=== PATIENT | female | born 1995 | race Hispanic/Latino ===

== ENCOUNTER 2018-10-07 05:43 | Emergency (ER) | payer MEDICAID ==
[2018-10-07 06:17] LABS: APPEARANCE,URINE CLOUDY (CLEAR); BILIRUBIN,URINE NEGATIVE (NEGATIVE); COLOR,URINE RED (YELLOW); GLUCOSE, URINE (UA) 100 mg/dL (NEGATIVE); KETONES,URINE 15 mg/dL (NEGATIVE); LEUKOCYTE ESTERASE ,URINE MODERATE (NEGATIVE); NITRATE,URINE POSITIVE (NEGATIVE); OCCULT BLOOD,URINE LARGE (NEGATIVE); PROTEIN,URINE >=300 mg/dL (NEGATIVE)
[2018-10-07 06:33] LABS: AMPHET/METH SCREEN,URINE NEGATIVE (NEGATIVE); BARBITURATE SCREEN, URINE NEGATIVE (NEGATIVE); BENZODIAZEPINES SCREEN,URINE POSITIVE (NEGATIVE); CANNABINOID SCREEN,URINE NEGATIVE (NEGATIVE); COCAINE SCREEN,URINE POSITIVE (NEGATIVE); OPIATE SCREEN,URINE NEGATIVE (NEGATIVE); PHENCYCLIDINE SCREEN,URINE NEGATIVE (NEGATIVE)
[2018-10-07 06:35] LABS: BASOPHILS % (AUTO) 0.3 % (0.0-5.0); EOSINOPHILS % (AUTO) 2.4 % (0.0-8.0); HEMATOCRIT 34.4 % (36-48); MEAN CORPUSCULAR HGB CONC 35.5 g/dL (32.0-36.0); MEAN CORPUSCULAR VOLUME 92.9 fL (79-99); MONOCYTES % (AUTO) 5.6 % (3.0-13.0); NEUTROPHILS % (AUTO) 56.7 % (40.0-77.0); PLATELET COUNT (AUTO) 211 K/uL (130-400); RED CELL DISTRIBUTION WIDTH 13.1 % (11.0-15.5); WHITE BLOOD COUNT (AUTO) 8.2 K/uL (4.8-10.8)
[2018-10-07 06:40] LABS: RBC,URINE TNTC /HPF (0-1)
[2018-10-07 06:41] LABS: BACTERIA,URINE Few /HPF (None Seen); SQUAMOUS EPITHELIAL CELL,UR 0-2 /HPF (0-2); WBC,URINE 0-1 /HPF (0-1)
[2018-10-07 06:42] LABS: CREATININE 0.6 mg/dL (0.5-1.5); POTASSIUM 3.2 mmol/L (3.5-5.1)
[2018-10-07 07:06] LABS: ALBUMIN 3.9 g/dL (3.5-5.0); BILIRUBIN,DIRECT 0.1 mg/dL (0.0-0.3); BILIRUBIN,TOTAL 0.3 mg/dL (0.2-1.0); TOTAL PROTEIN, SERUM 7.6 g/dL (6.0-8.3)
== END 2018-10-07 07:22 | disposition home or self-care (01) ==
LOC: EDH 05:43
DX: O03.4 Incomplete spontaneous abortion without complication (principal); F14.10 Cocaine abuse, uncomplicated; Z3A.13 13 weeks gestation of pregnancy
CPT/HCPCS: 36415; 76801; 80048; 80076; 80305; 81001; 84702; 85025; 86900; 86901

== ENCOUNTER 2021-06-07 07:48 | Emergency (ER) | payer MEDICAID ==
[~2021-06-07] VITALS: Ht 157.5 cm; Wt 56.2 kg
[2021-06-07 07:54] VITALS: BP 117/70
[2021-06-07] MEDS ORDERED: LIDOCAINE HCL 400MG/20ML VIAL ONE (08:00)
[2021-06-07] MEDS ORDERED: LIDOCAINE HCL 1% 20 ML VIAL INJ SCH (08:00)
== END 2021-06-07 08:36 | disposition home or self-care (01) ==
LOC: EDH 07:48
DX: S60.443A External constriction of left middle finger, initial encounter (principal); W49.04XA Ring or other jewelry causing external constriction, initial encounter; Y93.89 Activity, other specified; Y92.89 Other specified places as the place of occurrence of the external cause; Y99.8 Other external cause status
CPT/HCPCS: 64450; 99284; J3490

== ENCOUNTER 2021-11-28 19:25 | Emergency (ER) | payer MEDICAID ==
[~2021-11-28] VITALS: Ht 157.5 cm; Wt 54.9 kg
[2021-11-28 19:26] VITALS: BP 113/66
[2021-11-28 20:15] LABS: APPEARANCE,URINE Clear (CLEAR); BILIRUBIN,URINE Negative (NEGATIVE); COLOR,URINE Yellow (YELLOW); GLUCOSE, URINE (UA) Negative (NEGATIVE); KETONES,URINE Trace mg/dL (NEGATIVE); LEUKOCYTE ESTERASE ,URINE Trace (NEGATIVE); NITRATE,URINE Negative (NEGATIVE); OCCULT BLOOD,URINE Large (NEGATIVE); PROTEIN,URINE Trace mg/dL (NEGATIVE)
[2021-11-28 20:18] LABS: HCG,QUAL RESULT NEGATIVE (NEGATIVE)
[2021-11-28 20:24] LABS: BACTERIA,URINE Rare /HPF (None Seen); SQUAMOUS EPITHELIAL CELL,UR Few /HPF (0-2)
[2021-11-28] MEDS ORDERED: PHEN-847 PO (20:37)
[2021-11-28] MEDS ORDERED: CEPH500B PO (20:37)
== END 2021-11-28 20:55 | disposition home or self-care (01) ==
LOC: EDH 19:25
DX: N39.0 Urinary tract infection, site not specified (principal); Z87.59 Personal history of other complications of pregnancy, childbirth and the puerperium
CPT/HCPCS: 81001; 81025

== ENCOUNTER 2022-01-25 20:34 | Emergency (ER) | payer MEDICAID ==
[~2022-01-25] VITALS: Ht 154.9 cm; Wt 55.3 kg
[~2022-01-25 20:34] MED LIST: CEPH500B PO; PHEN-847 PO
[2022-01-25] MEDS ORDERED: ACETAMINOPHEN 500 MG TABLET PO ONE (21:00)
[2022-01-25 21:05] LABS: BASOPHILS % (AUTO) 0.3 % (0.0-5.0); LYMPHOCYTES % (AUTO) 5.5 % (21.0-51.0); MEAN CORPUSCULAR VOLUME 91.1 fL (79-99); MONOCYTES % (AUTO) 4.5 % (3.0-13.0); NEUTROPHILS % (AUTO) 88.9 % (40.0-77.0); PLATELET COUNT (AUTO) 181 K/uL (130-400); RED BLOOD CELL COUNT(AUTO) 3.84 MIL/uL (4.00-5.50); RED CELL DISTRIBUTION WIDTH 12.3 % (11.0-15.5)
[2022-01-25 21:06] LABS: APPEARANCE,URINE CLEAR (CLEAR); BILIRUBIN,URINE NEGATIVE (NEGATIVE); COLOR,URINE YELLOW (YELLOW); GLUCOSE, URINE (UA) NEGATIVE (NEGATIVE); KETONES,URINE NEGATIVE (NEGATIVE); LEUKOCYTE ESTERASE ,URINE TRACE (NEGATIVE); NITRATE,URINE POSITIVE (NEGATIVE); OCCULT BLOOD,URINE SMALL (NEGATIVE); PROTEIN,URINE 30 mg/dL (NEGATIVE)
[2022-01-25 21:10] LABS: HCG,QUALITATIVE URINE NEGATIVE (NEGATIVE)
[2022-01-25 21:12] LABS: BACTERIA,URINE Few /HPF (None Seen); SQUAMOUS EPITHELIAL CELL,UR Few /HPF (0-2)
[2022-01-25 21:14] LABS: CREATININE 0.8 mg/dL (0.5-1.5); POTASSIUM 3.3 mmol/L (3.5-5.1)
[2022-01-25 21:19] LABS: ALBUMIN 3.8 g/dL (3.5-5.0); TOTAL PROTEIN, SERUM 8.6 g/dL (6.0-8.3)
[2022-01-25] MEDS ORDERED: 0.9%NACL 1000ML 1,000 ML IV SCH (21:30)
[2022-01-25] MEDS ORDERED: CEFTRIAXONE 1G VIAL IVP ONE (21:30)
[2022-01-25] MEDS ORDERED: KETOROLAC 30MG VIAL (30MG/ML) IVP ONE (22:30)
[2022-01-25] MEDS ORDERED: IBUP-2070 PO (23:54)
[2022-01-25] MEDS ORDERED: CEFD300C3 PO (23:54)
[2022-01-25] MEDS ORDERED: ACET-66 PO (23:54)
[2022-01-26] VITALS: BP 99/61
== END 2022-01-26 00:06 | disposition home or self-care (01) ==
LOC: EDH 20:34
DX: N39.0 Urinary tract infection, site not specified (principal); Z20.822 Contact with and (suspected) exposure to COVID-19; Z79.1 Long term (current) use of non-steroidal anti-inflammatories (NSAID)
CPT/HCPCS: 99284; 96374; 87635; 80053; 85025; 87040 ×2; 87077 ×2; 87088; 87186 ×2; 87804 ×2; 83605; 81001; 81025; 36415; 93005; 84145; C9803; J0696

== ENCOUNTER 2022-05-24 20:47 | Emergency (ER) | payer MEDICAID ==
[~2022-05-24] VITALS: Ht 157.5 cm; Wt 53.1 kg
[~2022-05-24 20:47] MED LIST changes: +ACET-66 PO; +CEFD300C3 PO; +IBUP-2070 PO
[2022-05-24 21:42] LABS: APPEARANCE,URINE CLEAR (CLEAR); BILIRUBIN,URINE NEGATIVE (NEGATIVE); COLOR,URINE YELLOW (YELLOW); GLUCOSE, URINE (UA) NEGATIVE (NEGATIVE); KETONES,URINE NEGATIVE (NEGATIVE); LEUKOCYTE ESTERASE ,URINE 250 Leu/uL (NEGATIVE); NITRATE,URINE NEGATIVE (NEGATIVE); OCCULT BLOOD,URINE NEGATIVE (NEGATIVE); PROTEIN,URINE 10 mg/dL (NEGATIVE)
[2022-05-24 21:44] LABS: HCG,QUALITATIVE URINE NEGATIVE (NEGATIVE)
[2022-05-24 21:54] LABS: BACTERIA,URINE FEW /HPF (None Seen); MUCUS,URINE FEW LPF (None Seen); SQUAMOUS EPITHELIAL CELL,UR FEW /HPF (0-2); WBC,URINE 26-50 /HPF (0-1)
[2022-05-24] MEDS ORDERED: CEFTRIAXONE 1G VIAL IM ONE (22:30)
[2022-05-24] MEDS ORDERED: CEPH500B PO (22:36)
[2022-05-24 23:14] VITALS: BP 104/70
== END 2022-05-24 23:18 | disposition home or self-care (01) ==
LOC: EDH 20:47
DX: N39.0 Urinary tract infection, site not specified (principal); Z79.1 Long term (current) use of non-steroidal anti-inflammatories (NSAID); Z87.59 Personal history of other complications of pregnancy, childbirth and the puerperium
CPT/HCPCS: 99284; 76856; 87088; 81001; 81025; 96372; J0696

== ENCOUNTER 2022-08-13 22:16 | Observation (INO) | payer MEDICAID ==
[~2022-08-13] VITALS: Ht 157.5 cm; Wt 54.0 kg
[2022-08-13 22:54] LABS: BASOPHILS % (AUTO) 0.2 % (0.0-5.0); EOSINOPHILS % (AUTO) 0.7 % (0.0-8.0); HEMATOCRIT 24.6 % (36-48); LYMPHOCYTES % (AUTO) 23.7 % (21.0-51.0); MEAN CORPUSCULAR HEMOGLOBIN 30.9 pg (27.0-33.0); MEAN CORPUSCULAR HGB CONC 34.1 g/dL (32.0-36.0); MEAN CORPUSCULAR VOLUME 90.4 fL (79-99); MONOCYTES % (AUTO) 8.8 % (3.0-13.0); NEUTROPHILS % (AUTO) 65.9 % (40.0-77.0); PLATELET COUNT (AUTO) 245 K/uL (130-400); RED BLOOD CELL COUNT(AUTO) 2.72 MIL/uL (4.00-5.50); RED CELL DISTRIBUTION WIDTH 12.4 % (11.0-15.5); WHITE BLOOD COUNT (AUTO) 8.1 K/uL (4.8-10.8)
[2022-08-13] MEDS ORDERED: 0.9%NACL 1000ML 1,000 ML IV ONE (23:00)
[2022-08-13 23:04] LABS: APPEARANCE,URINE CLOUDY (CLEAR); BILIRUBIN,URINE NEGATIVE (NEGATIVE); COLOR,URINE LIGHT-YELLOW (YELLOW); GLUCOSE, URINE (UA) NEGATIVE (NEGATIVE); KETONES,URINE NEGATIVE (NEGATIVE); LEUKOCYTE ESTERASE ,URINE 500 Leu/uL (NEGATIVE); NITRATE,URINE NEGATIVE (NEGATIVE); OCCULT BLOOD,URINE LARGE (NEGATIVE); PH,URINE 7.5 (5.0-8.0); PROTEIN,URINE 20 mg/dL (NEGATIVE); UROBILINOGEN,URINE 3 mg/dL (0.2-1.0)
[2022-08-13 23:09] LABS: BACTERIA,URINE RARE /HPF (None Seen); MUCUS,URINE RARE LPF (None Seen); RBC,URINE 26-50 /HPF (0-1); SQUAMOUS EPITHELIAL CELL,UR MOD /HPF (0-2); WBC,URINE 51-100 /HPF (0-1)
[2022-08-13 23:23] LABS: ALBUMIN 2.9 g/dL (3.5-5.0); CREATININE 0.7 mg/dL (0.5-1.5); TOTAL PROTEIN, SERUM 7.8 g/dL (6.0-8.3)
[2022-08-13 23:26] LABS: POTASSIUM 2.8 mmol/L (3.5-5.1)
[2022-08-13] MEDS ORDERED: CEFTRIAXONE 1G VIAL IVP ONE (23:30)
[2022-08-14] VITALS (13 sets, daily range): BP systolic 101–117; BP diastolic 58–88
[2022-08-14] MEDS ORDERED: POTASSIUM BICARB/CIT AC 25 MEQ TABLET.EFF ONE (00:15)
[2022-08-14] MEDS: POTASSIUM BICARB/CIT AC 25 MEQ TABLET.EFF PO SCH ×2 (00:17→14:00)
[2022-08-14] MEDS ORDERED: PROMETHAZINE HCL 25 MG/ML 1ML AMPULE IM PRN (02:30)
[2022-08-14] MEDS ORDERED: ACETAMINOPHEN 500 MG TABLET PO ONE (02:30)
[2022-08-14] MEDS ORDERED: MISOPROSTOL 100 MCG TABLET PO ONE (02:30)
[2022-08-14] MEDS ORDERED: MEPERIDINE-PF 50 MG/ML SYG IVP PRN (02:30)
[2022-08-14] MEDS ORDERED: 0.9%NACL 1000ML 1,000 ML IV ONE (04:00)
[2022-08-14] MEDS ORDERED: ROCURONIUM 10MG/1ML SYR 10 MG/ML ML ONE (08:53)
[2022-08-14] MEDS ORDERED: LIDOCAINE PF 100MG/5ML (2%) SYRINGE 5ML ONE (08:53)
[2022-08-14] MEDS ORDERED: DEXAMETHASONE SOD PHOSPHATE 10MG/ML 1ML VIAL ONE (08:54)
[2022-08-14] MEDS ORDERED: PROPOFOL 10 MG/ML 20ML VIAL IV ONE (08:54)
[2022-08-14] MEDS ORDERED: FENTANYL CITRATE PF 50 MCG/1 ML 2ML VIAL ONE (08:54)
[2022-08-14] MEDS ORDERED: MIDAZOLAM HCL 1 MG/ML 2ML VIAL ONE (08:54)
[2022-08-14] MEDS ORDERED: ONDANSETRON 4MG INJ ONE (08:54)
[2022-08-14] MEDS ORDERED: CEFAZOLIN SODIUM 2 GM VIAL ONE (09:22)
[2022-08-14] MEDS ORDERED: CEFAZOLIN SODIUM 2 GM VIAL IVPB ONE (09:24)
[2022-08-14] MEDS ORDERED: NEOSTIGMINE 5MG/5ML SYR IV ONE (09:27)
[2022-08-14] MEDS ORDERED: GLYCOPYRROLATE 1 MG/5 ML SYRINGE ONE (09:27)
[2022-08-14] MEDS ORDERED: METHYLERGONOVINE MALEATE 0.2 MG/1 ML ML ONE (09:28)
[2022-08-14] MEDS ORDERED: METHYLERGONOVINE MALEATE 0.2 MG/1 ML ML IM ONE (09:29)
[2022-08-14] MEDS ORDERED: OSELTAMIVIR PHOSPHATE 75 MG CAP PO SCH ×2 (11:00→21:00)
== END 2022-08-14 16:25 | disposition home or self-care (01) ==
LOC: EDH 22:16 → INTOOBSV 22:17 → EDHIP 22:17 → WSH 08-14 02:40
PROVIDERS: ADMIT Obstetrics & Gynecology; ATTEND Obstetrics & Gynecology
DX: O03.4 Incomplete spontaneous abortion without complication (principal); Z20.822 Contact with and (suspected) exposure to COVID-19; D64.9 Anemia, unspecified; N39.0 Urinary tract infection, site not specified; J10.1 Influenza due to other identified influenza virus with other respiratory manifestations; Z3A.10 10 weeks gestation of pregnancy; Z79.899 Other long term (current) drug therapy
CPT/HCPCS: 99284; 80053; 84702; 85025; 86850; 86900; 86901; 86923; 87040 ×2; 87077; 87088; 87186; 87804 ×2; 83605; 81001; 81025; 36415; 87635; 76817; 59820; 96374; 96375; 36430; 88305; C9803; J7030 ×5; G0378 ×6; A4351; C1769; P9016 ×2; J3010; J3490 ×3; J1100; J2710; J0696; J2250; J2405; J2175; J2210 ×2; J0690 ×2; 76801; J2001; J2704

== ENCOUNTER 2022-10-10 15:01 | Emergency (ER) | payer MEDICAID ==
[~2022-10-10] VITALS: Ht 157.5 cm; Wt 54.9 kg
[2022-10-10 16:22] LABS: BASOPHILS % (AUTO) 0.4 % (0.0-5.0); EOSINOPHILS % (AUTO) 0.6 % (0.0-8.0); HEMATOCRIT 37.1 % (36-48); LYMPHOCYTES % (AUTO) 26.7 % (21.0-51.0); MEAN CORPUSCULAR HEMOGLOBIN 30.4 pg (27.0-33.0); MEAN CORPUSCULAR HGB CONC 33.7 g/dL (32.0-36.0); MEAN CORPUSCULAR VOLUME 90.3 fL (79-99); MONOCYTES % (AUTO) 5.7 % (3.0-13.0); NEUTROPHILS % (AUTO) 66.3 % (40.0-77.0); PLATELET COUNT (AUTO) 223 K/uL (130-400); RED BLOOD CELL COUNT(AUTO) 4.11 MIL/uL (4.00-5.50); RED CELL DISTRIBUTION WIDTH 13.5 % (11.0-15.5); WHITE BLOOD COUNT (AUTO) 7.2 K/uL (4.8-10.8)
[2022-10-10 16:30] LABS: CREATININE 0.8 mg/dL (0.5-1.5); POTASSIUM 3.7 mmol/L (3.5-5.1)
[2022-10-10 16:35] LABS: ALBUMIN 4.2 g/dL (3.5-5.0); TOTAL PROTEIN, SERUM 8.7 g/dL (6.0-8.3)
[2022-10-10 17:01] LABS: APPEARANCE,URINE CLEAR (CLEAR); BILIRUBIN,URINE NEGATIVE (NEGATIVE); COLOR,URINE LIGHT-YELLOW (YELLOW); GLUCOSE, URINE (UA) NEGATIVE (NEGATIVE); KETONES,URINE NEGATIVE (NEGATIVE); LEUKOCYTE ESTERASE ,URINE NEGATIVE Leu/uL (NEGATIVE); NITRATE,URINE NEGATIVE (NEGATIVE); OCCULT BLOOD,URINE NEGATIVE (NEGATIVE); PH,URINE 5.5 (5.0-8.0); PROTEIN,URINE NEGATIVE (NEGATIVE); UROBILINOGEN,URINE 0.2 mg/dL (0.2-1.0)
[2022-10-10 17:03] LABS: BACTERIA,URINE RARE /HPF (None Seen); MUCUS,URINE RARE LPF (None Seen); SQUAMOUS EPITHELIAL CELL,UR FEW /HPF (0-2); YEAST,URINE BUDDING FEW /HPF (None Seen)
[2022-10-10 17:35] LABS: HCG,QUALITATIVE URINE NEGATIVE (NEGATIVE)
[2022-10-10] MEDS ORDERED: ONDA4TAB10 PO (18:41)
[2022-10-10 18:49] VITALS: BP 122/63
== END 2022-10-10 19:06 | disposition home or self-care (01) ==
LOC: EDH 15:01
DX: R11.2 Nausea with vomiting, unspecified (principal)
CPT/HCPCS: 36415; 80053; 81001; 81025; 83690; 85025

== ENCOUNTER 2023-05-17 16:55 | Emergency (ER) | payer MEDICAID ==
[~2023-05-17] VITALS: Ht 157.5 cm; Wt 54.4 kg
[~2023-05-17 16:55] MED LIST changes: -ACET-66 PO; -CEFD300C3 PO; -CEPH500B PO; -IBUP-2070 PO; +ONDA4TAB10 PO; -PHEN-847 PO
[2023-05-17 18:16] LABS: RAPID GROUP A STREP negative (NEGATIVE)
[2023-05-17 18:18] LABS: SARS-CoV-2, RNA, NAAT NEGATIVE SARS CoV-2 (NEGATIVE)
[2023-05-17 18:26] LABS: INFLUENZA TYPE A Negative For Type A (NEGATIVE); INFLUENZA TYPE B Negative For Type B (NEGATIVE)
[2023-05-17] MEDS ORDERED: DEXAMETHASONE 4 MG TAB PO SCH (21:00)
[2023-05-17] MEDS ORDERED: CEFTRIAXONE 1G VIAL IVPB ONE (21:00)
[2023-05-17 21:19] LABS: BASOPHILS # (AUTO) 0.01 K/uL (0.00-0.20); BASOPHILS % (AUTO) 0.1 % (0.0-5.0); EOSINOPHILS # (AUTO) 0.05 K/uL (0.00-0.70); EOSINOPHILS % (AUTO) 0.5 % (0.0-8.0); HEMATOCRIT 39.5 % (36-48); IMMATURE GRANULOCYTE ABSOLUTE 0.04 K/uL (0-1); LYMPHOCYTES # (AUTO) 0.6 K/uL (1.0-4.8); LYMPHOCYTES % (AUTO) 5.6 % (21.0-51.0); MEAN CORPUSCULAR HEMOGLOBIN 31.8 pg (27.0-33.0); MEAN CORPUSCULAR HGB CONC 33.9 g/dL (32.0-36.0); MEAN CORPUSCULAR VOLUME 93.6 fL (79-99); MONOCYTES # (AUTO) 0.4 K/uL (0.1-1.0); MONOCYTES % (AUTO) 3.8 % (3.0-13.0); NEUTROPHILS # (AUTO) 8.8 K/uL (1.8-7.7); NEUTROPHILS % (AUTO) 89.6 % (40.0-77.0); PLATELET COUNT (AUTO) 182 K/uL (130-400); RED BLOOD CELL COUNT(AUTO) 4.22 MIL/uL (4.00-5.50); RED CELL DISTRIBUTION WIDTH 12.9 % (11.0-15.5); WHITE BLOOD COUNT (AUTO) 9.8 K/uL (4.8-10.8)
[2023-05-17 21:36] LABS: CREATININE 0.7 mg/dL (0.5-1.5); POTASSIUM 3.2 mmol/L (3.5-5.1)
[2023-05-17 21:41] LABS: ALBUMIN 3.9 g/dL (3.5-5.0); BILIRUBIN,TOTAL 0.4 mg/dL (0.2-1.0); TOTAL PROTEIN, SERUM 9.1 g/dL (6.0-8.3)
[2023-05-17] MEDS ORDERED: AMOX250L PO (21:48)
[2023-05-17] MEDS ORDERED: ACET160E39 PO (21:48)
[2023-05-17 22:11] VITALS: BP 128/78; PULSE 88; RESP 20; O2SAT 100
== END 2023-05-17 22:16 | disposition home or self-care (01) ==
LOC: EDH 16:55
DX: J03.00 Acute streptococcal tonsillitis, unspecified (principal); J03.90 Acute tonsillitis, unspecified; E86.0 Dehydration; Z20.822 Contact with and (suspected) exposure to COVID-19
CPT/HCPCS: 99284; 96365; 87635; 80053; 85025; 87880; 87804 ×2; 36415; C9803; J0696; J8540

== ENCOUNTER 2024-01-14 19:59 | Emergency (ER) | payer BC ==
[~2024-01-14] VITALS: Ht 157.5 cm; Wt 54.4 kg
[~2024-01-14 19:59] MED LIST changes: +ACET160E39 PO; +AMOX250L PO; +ONDA-243 PO; -ONDA4TAB10 PO; +TRAZ-253 PO
[2024-01-14 20:41] LABS: APPEARANCE,URINE CLEAR (CLEAR); BILIRUBIN,URINE NEGATIVE (NEGATIVE); COLOR,URINE COLORLESS (YELLOW); GLUCOSE, URINE (UA) NEGATIVE (NEGATIVE); KETONES,URINE NEGATIVE (NEGATIVE); NITRATE,URINE NEGATIVE (NEGATIVE); OCCULT BLOOD,URINE NEGATIVE (NEGATIVE); PH,URINE 6.5 (5.0-8.0); PROTEIN,URINE NEGATIVE (NEGATIVE); UROBILINOGEN,URINE 0.2 mg/dL (0.2-1.0)
[2024-01-14 20:42] LABS: LEUKOCYTE ESTERASE ,URINE 25 Leu/uL (NEGATIVE)
[2024-01-14 20:46] LABS: ADD UA MICROSCOPIC YES
[2024-01-14 20:48] LABS: RBC,URINE 0-1 /HPF (0-1); SQUAMOUS EPITHELIAL CELL,UR RARE /HPF (0-2)
[2024-01-14 20:50] LABS: HCG,QUALITATIVE URINE NEGATIVE (NEGATIVE)
[2024-01-14] MEDS: ACETAMINOPHEN 500 MG TABLET PO ONE (21:11)
[2024-01-14] MEDS: PHENAZOPYRIDINE HCL 200 MG TABLET PO ONE (21:11)
[2024-01-14] MEDS: AMOX/CLAV 875/125MG TAB PO ONE (21:11)
[2024-01-14] MEDS ORDERED: PHEN-847 PO (21:13)
[2024-01-14] MEDS ORDERED: AMOX1TAB16 PO (21:13)
[2024-01-14 21:16] VITALS: BP 114/69; PULSE 68; RESP 18; O2SAT 100
== END 2024-01-14 21:21 | disposition home or self-care (01) ==
LOC: EDH 19:59
DX: N30.01 Acute cystitis with hematuria (principal); R30.0 Dysuria
CPT/HCPCS: 81001; 81025